=== PATIENT | female | born 1945 | race Two or more races ===

== ENCOUNTER 2021-10-26 08:32 | Outpatient (CLI) | payer OTHER | END 2021-10-26 08:46 | disposition home or self-care (01) | LOC: LAB 08:32 | PROVIDERS: ATTEND Colon & Rectal Surgery | DX: I10 Essential (primary) hypertension (principal); K59.09 Other constipation; N39.0 Urinary tract infection, site not specified; D59.8 Other acquired hemolytic anemias; Z11.59 Encounter for screening for other viral diseases; Z20.828 Contact with and (suspected) exposure to other viral communicable diseases; D68.8 Other specified coagulation defects; K57.32 Diverticulitis of large intestine without perforation or abscess without bleeding ==

== ENCOUNTER 2021-11-02 11:15 | Inpatient (IN) | payer OTHER ==
[~2021-11-02] VITALS: Ht 149.9 cm; Wt 56.2 kg
[2021-11-12] MEDS ORDERED: HYDROCHLOROTHIA25 MG PO (10:31)
[2021-11-12] MEDS ORDERED: TOPROL XL50 M1 PO (10:31)
[2021-11-12] MEDS ORDERED: ZESTRIL20 MG PO (10:31)
[2021-11-12] MEDS ORDERED: GLUCOTROL XL5 MG PO (10:33)
[2021-11-12] MEDS ORDERED: ZOCOR40 MG PO (10:33)
[2021-11-12] MEDS ORDERED: METFORMIN HCL850 M1 PO (10:33)
[2021-11-12] MEDS ORDERED: ADULT LOW DOSE81 M1 PO (10:34)
[2021-11-12] MEDS ORDERED: TRADJENTA5 MG PO (10:34)
[2021-11-12] MEDS ORDERED: OMEPRAZOLE40 MG PO (10:35)
[2021-11-12] MEDS ORDERED: CALCIUM500 M1 PO (10:35)
[2021-11-12] MEDS ORDERED: EVISTA60 MG PO (10:35)
[2021-11-12] MEDS ORDERED: CENTRUM COMPLE1 EACH PO (10:36)
[2021-11-19] MEDS ORDERED: SUCRALFATE1 GM (07:58)
[2021-11-19] MEDS ORDERED: FAMOTIDINE40 MG (07:58)
== END 2021-11-21 14:27 | disposition home or self-care (01) | DRG 331 ==
LOC: ADM 11:15 → EDSTATUS 11-12 07:15 → ADM 11-12 07:15 → SURG 11-19 05:49 → O/R 11-19 05:49 → SURH 11-19 07:00 → SURG 11-19 13:27
PROVIDERS: ADMIT Colon & Rectal Surgery; ATTEND Colon & Rectal Surgery
PROC: 0DBP4ZZ Excision of Rectum, Percutaneous Endoscopic Approach (ICD-10-PCS; 2021-11-19)
PROC: 0DJD8ZZ Inspection of Lower Intestinal Tract, Via Natural or Artificial Opening Endoscopic (ICD-10-PCS; 2021-11-19)
PROC: BF5 Imaging, Hepatobiliary System and Pancreas, Other Imaging (ICD-10-PCS; 2021-11-19)
PROC: 0DTN4ZZ Resection of Sigmoid Colon, Percutaneous Endoscopic Approach (ICD-10-PCS; principal; 2021-11-19 07:00)
DX: K57.32 Diverticulitis of large intestine without perforation or abscess without bleeding (principal); R10.32 Left lower quadrant pain; K63.5 Polyp of colon; E83.42 Hypomagnesemia

== ENCOUNTER 2021-11-14 07:15 | Day surgery (SDC) | payer OTHER ==
[~2021-11-14 07:15] MED LIST: ADULT LOW DOSE81 M1 PO; CALCIUM500 M1 PO; CENTRUM COMPLE1 EACH PO; EVISTA60 MG PO; GLUCOTROL XL5 MG PO; HYDROCHLOROTHIA25 MG PO; METFORMIN HCL850 M1 PO; OMEPRAZOLE40 MG PO; TOPROL XL50 M1 PO; TRADJENTA5 MG PO; ZESTRIL20 MG PO; ZOCOR40 MG PO
== END 2021-11-14 12:35 | disposition home or self-care (01) ==
LOC: AMB-ENDOS 07:15
PROVIDERS: ATTEND Colon & Rectal Surgery
DX: K57.30 Diverticulosis of large intestine without perforation or abscess without bleeding (principal)

== ENCOUNTER 2023-02-12 08:33 | Day surgery (SDC) | payer OTHER ==
[~2023-02-12 08:33] MED LIST changes: +FAMOTIDINE40 MG; +SUCRALFATE1 GM
== END 2023-02-12 12:20 | disposition home or self-care (01) ==
LOC: AMB-ENDOS 08:33
PROVIDERS: ATTEND Colon & Rectal Surgery
DX: K57.32 Diverticulitis of large intestine without perforation or abscess without bleeding (principal); K64.8 Other hemorrhoids; Z20.822 Contact with and (suspected) exposure to COVID-19; R10.32 Left lower quadrant pain

== ENCOUNTER 2025-06-21 06:00 | Day surgery (SDC) | payer OTHER ==
[2025-06-22] MEDS ORDERED: MIDAZOLAM HCL 2 MG/2 ML VIAL IV ONE (11:30)
[2025-06-22] MEDS ORDERED: ONDANSETRON HCL 2 MG/ML VIAL IV ONE (11:30)
[2025-06-22] MEDS ORDERED: fentaNYL CITRATE 50 MCG/ML AMPUL IV PUSH ONE (11:30)
[2025-06-22] MEDS ORDERED: DIPHENHYDRAMINE HCL 50 MG/ML VIAL 1ML IV ONE (11:30)
== END 2025-06-22 12:45 | disposition home or self-care (01) ==
LOC: AMB-ENDOS 06:00
PROVIDERS: ATTEND Colon & Rectal Surgery
DX: D12.0 Benign neoplasm of cecum (principal); D12.2 Benign neoplasm of ascending colon; D12.3 Benign neoplasm of transverse colon; D12.4 Benign neoplasm of descending colon; K63.5 Polyp of colon; K57.30 Diverticulosis of large intestine without perforation or abscess without bleeding; R19.5 Other fecal abnormalities